=== PATIENT | female | born 1955 | race Caucasian/White ===

== ENCOUNTER 2017-02-02 12:42 | Outpatient (CLI) ==
--- NOTE | 2017-02-02 14:11 | DI ---
EXAM: Left toe, second digit three-view HISTORY: Pain COMPARISON: None FINDINGS: There is a mildly displaced, transversely oriented fracture of the proximal phalanx of the second digit. Small adjacent callous formation, suggesting healing changes. No dislocation. IMPERSSION: Fracture of the proximal phalanx second digit. Small adjacent callus formation suggesti ng healing changes.
== END 2017-02-02 12:43 | disposition home or self-care (01) ==
LOC: RAD 12:42
PROVIDERS: ATTEND Family Medicine
DX: M79.675 Pain in left toe(s) (principal)

== ENCOUNTER 2017-08-29 11:21 | Outpatient (CLI) | END 2017-08-29 11:22 | disposition home or self-care (01) | LOC: LAB 11:21 | PROVIDERS: ATTEND Psychiatry & Neurology Psychiatry | DX: Z79.899 Other long term (current) drug therapy (principal) | CPT/HCPCS: 36415; 84439; 84443; 84480 ==